=== PATIENT | female | born 1960 | race Caucasian/White ===

== ENCOUNTER 2017-01-06 19:35 | Emergency (ER) | payer MEDICAID ==
[~2017-01-06] VITALS: Ht 170.2 cm; Wt 71.7 kg
[2017-01-06 20:30] VITALS: BP 137/87
[2017-01-06] MEDS ORDERED: Azithromycin 250mg tab PO ONE (20:45)
[2017-01-06] MEDS ORDERED: Albuterol ud Inhalation HHN ONE (20:45)
[2017-01-06] MEDS ORDERED: DuoNeb 0.5-3(2.5)mg/3ml neb ONE (21:13)
[2017-01-06 21:19] LABS: BASOPHILS % (AUTO) 0.9 % (0.0-2.0); EOSINOPHILS % (AUTO) 0.7 % (0.0-3.0); LYMPHOCYTES % (AUTO) 39.8 % (20.0-45.0); MEAN CORPUSCULAR HEMOGLOBIN 32.1 PG (27.0-31.0); MEAN CORPUSCULAR HGB CONC 35.6 G/DL (32.0-36.0); MEAN CORPUSCULAR VOLUME 90 FL (80-99); MEAN PLATELET VOLUME 6.8 FL (6.5-10.1); MONOCYTES % (AUTO) 11.5 % (1.0-10.0); NEUTROPHILS % (AUTO) 47.1 % (45.0-75.0); PLATELET COUNT 167 K/UL (150-450); RED BLOOD COUNT 4.16 M/UL (4.20-5.40); RED CELL DISTRIBUTION WIDTH 11.5 % (11.6-14.8); WHITE BLOOD COUNT 6.6 K/UL (4.8-10.8)
[2017-01-06 21:35] LABS: ALANINE AMINOTRANSFERASE 24 U/L (3-33); ALBUMIN/GLOBULIN RATIO 1.3 (1.0-2.7); ANION GAP 12 (5-15); ASPARTATE AMINO TRANSFERASE 17 U/L (5-40); CALCIUM 9.1 mg/dL (8.6-10.2); CARBON DIOXIDE 24 mEQ/L (20-30); CHLORIDE 104 mEQ/L (98-107); CREATININE 0.9 mg/dL (0.5-0.9); GLOMERULAR FILTRATION RATE > 60 mL/min (>60); HEMOLYSIS 3; POTASSIUM 3.9 mEQ/L (3.4-4.9); SODIUM 140 mEQ/L (135-145); TOTAL PROTEIN 7.3 g/dL (6.6-8.7)
--- NOTE | 2017-01-06 22:03 | Emergency Room Report ---
History of Present Illness General Chief Complaint: Flu Like Symptoms Source: Patient Present Illness HPI This patient states that for the past week she is bodyaches, cough and has felt terrible. She denies sputum production. She states her cough is severe. She denies nausea or vomiting. She has subjective fever. She denies chest pain. She denies abdominal pain. She has no other complaints. Allergies: Coded Allergies: No Known Allergies (Unverified , 01/06/17) Patient History Past Medical History: see triage record, asthma Past Surgical History: none Social History: Denies: smoking, alcohol use, drug use Last Menstrual Period: NA Now: No Reviewed Nursing Documentation: PMH: Agreed, PSxH: Agreed Nursing Documentation-PMH Past Medical History: No Stated History Hx Asthma: Yes Review of Systems All Other Systems: negative except mentioned in HPI Physical Exam Vital Signs Date Time Temp Pulse Resp B/P (MAP) Pulse Ox O2 Delivery O2 Flow Rate FiO2 01/06/17 20:25 98.8 85 18 137/87 98 Room Air 01/06/17 21:40 21 Sp02 EP Interpretation: reviewed, normal General Appearance: no apparent distress, alert, GCS 15, non-toxic Head: normocephalic, atraumatic Eyes: bilateral eye normal inspection, bilateral eye PERRL ENT: hearing grossly normal, normal pharynx, no angioedema, normal voice Neck: full range of motion, supple/symm/no masses Respiratory: chest non-tender, no respiratory distress, no retraction, no accessory muscle use, speaking full sentences, wheezing - with forced expiration and cough Cardiovascular #1: regular rate, rhythm, no edema Gastrointestinal: normal bowel sounds, non tender, soft, non-distended, no guarding, no rebound Rectal: deferred Musculoskeletal: back normal, gait/station normal, normal range of motion, non- tender Neurologic: alert, oriented x3, responsive, motor strength/tone normal, sensory intact, speech normal Psychiatric: judgement/insight normal, memory normal, mood/affect normal, no suicidal/homicidal ideation Skin: normal color, no rash, warm/dry, well hydrated Medical Decision Making Diagnostic Impression: Primary Impression: URI (upper respiratory infection) Additional Impression: Bronchitis ER Course This patient has a clinical presentation with bronchitis and some expiratory wheezing. The evaluation was very reassuring with a normal lung exam, no respiratory distress, normal pulse oximetry. I am not concerned for pneumonia in this patient. The patient had symptoms ongoing for the past week. Given the history of asthma, I will go ahead and treat this patient with a course of antibiotics, steroids and albuterol. The patient was given close return precautions and followup instructions are No emergency medical condition was identified. Laboratory Tests Test 01/06/17 20:55 01/06/17 21:00 White Blood Count 6.6 K/UL (4.8-10.8) Red Blood Count 4.16 M/UL (4.20-5.40) L Hemoglobin 13.3 G/DL (12.0-16.0) Hematocrit 37.5 % (37.0-47.0) Mean Corpuscular Volume 90 FL (80-99) Mean Corpuscular Hemoglobin 32.1 PG (27.0-31.0) H Mean Corpuscular Hemoglobin Concent 35.6 G/DL (32.0-36.0) Red Cell Distribution Width 11.5 % (11.6-14.8) L Platelet Count 167 K/UL (150-450) Mean Platelet Volume 6.8 FL (6.5-10.1) Neutrophils (%) (Auto) 47.1 % (45.0-75.0) Lymphocytes (%) (Auto) 39.8 % (20.0-45.0) Monocytes (%) (Auto) 11.5 % (1.0-10.0) H Eosinophils (%) (Auto) 0.7 % (0.0-3.0) Basophils (%) (Auto) 0.9 % (0.0-2.0) Sodium Level 140 mEQ/L (135-145) Potassium Level 3.9 mEQ/L (3.4-4.9) Chloride Level 104 mEQ/L (98-107) Carbon Dioxide Level 24 mEQ/L (20-30) Anion Gap 12 (5-15) Blood Urea Nitrogen 14 mg/dL (7-23) Creatinine 0.9 mg/dL (0.5-0.9) Estimate Glomerular Filtration Rate > 60 mL/min (>60) Glucose Level 99 mg/dL (74-106) Lactic Acid Level 1.10 mmol/L (0.66-2.22) Calcium Level 9.1 mg/dL (8.6-10.2) Total Bilirubin 0.2 mg/dL (0.0-1.2) Aspartate Amino Transferase (AST) 17 U/L (5-40) Alanine Aminotransferase (ALT) 24 U/L (3-33) Alkaline Phosphatase 46 U/L (35-104) Total Protein 7.3 g/dL (6.6-8.7) Albumin 4.2 g/dL (3.5-5.2) Globulin 3.1 g/dL Albumin/Globulin Ratio 1.3 (1.0-2.7) Urine Color Pending Urine Appearance Pending Urine pH Pending Urine Specific [place] Pending Urine Protein Pending Urine Glucose (UA) Pending Urine Ketones Pending Urine Occult Blood Pending Urine Nitrite Pending Urine Bilirubin Pending Urine Urobilinogen Pending Urine Leukocyte Esterase Pending EKG Diagnostic Results Rate: normal Rhythm: NSR ST Segments: no acute changes Rhythm Strip Diag. Results EP Interpretation: yes Rate: 70's Rhythm: NSR, no PVC's, no ectopy Chest X-Ray Diagnostic Results Chest X-Ray Diagnostic Results : Chest X-Ray Ordered: Yes # of Views/Limited/Complete: 1 View Indication: Other - cough EP Interpretation: Yes Interpretation: no consolidation, no effusion, no pneumothorax, no acute cardiopulmonary disease Impression: No acute disease Electronically Signed by: Adama Last Vital Signs Date Time Temp Pulse Resp B/P (MAP) Pulse Ox O2 Delivery O2 Flow Rate FiO2 01/06/17 21:41 88 20 99 Room Air 21 01/06/17 20:25 98.8 137/87 Status: improved Disposition: HOME, SELF-CARE Condition: Improved SADE POMPA D.O. Jan 06, 2017 22:03
[2017-01-06 22:04] LABS: APPEARANCE,URINE CLEAR; KETONES,URINE NEGATIVE (NEGATIVE); LEUKOCYTE ESTERASE ,URINE 2+ (NEGATIVE); NITRITE,URINE NEGATIVE (NEGATIVE); PH,URINE 8 (4.5-8.0); PROTEIN,URINE NEGATIVE (NEGATIVE); UROBILINOGEN,URINE NORMAL MG/DL (0.0-1.0)
[2017-01-06] MEDS ORDERED: E-Z SPACER1 EACH MC (22:07)
[2017-01-06] MEDS ORDERED: ZITHROMAX250 MG ORAL (22:07)
[2017-01-06] MEDS ORDERED: PREDNISONE20 MG ORAL (22:07)
[2017-01-06] MEDS ORDERED: ALBUTEROL SULF8.5 GM INH (22:07)
[2017-01-06 22:24] LABS: BACTERIA,URINE FEW /HPF; RBC,URINE 0-2 /HPF (0 - 2); SQUAMOUS EPITHELIAL CELL,UR FEW /LPF (NONE/OCC)
[2017-01-06 22:30] VITALS: BP 130/79
--- NOTE | 2017-01-07 11:48 | Diagnostic Imaging Report ---
Indication: Dyspnea Comparison: None A single view chest radiograph was obtained. Findings: No definite infiltrate or pulmonary vascular congestion identified. The heart is enlarged. The aorta is mildly enlarged consistent with atherosclerotic vascular disease. The bones are osteopenic. Impression: No acute disease
--- NOTE | 2017-01-07 17:55 | Cardiology Report ---
APPROVED REPORT EKG Measurement Heart [id number] Normal sinus rhythm Normal ECG
== END 2017-01-06 22:30 | disposition home or self-care (01) ==
LOC: EMR 20:51
DX: J06.9 Acute upper respiratory infection, unspecified (principal); J45.909 Unspecified asthma, uncomplicated
CPT/HCPCS: 36415; 71010; 80053; 81003; 83605; 85025; 87040; 93005; 94640; 94664; 96360; 99284; Q0144; 96361; J7620

== ENCOUNTER 2017-08-03 17:23 | Emergency (ER) | payer MEDICAID ==
[~2017-08-03] VITALS: Ht 170.2 cm; Wt 71.2 kg
[~2017-08-03 17:23] MED LIST: ALBUTEROL SULF8.5 GM INH; E-Z SPACER1 EACH MC; PREDNISONE20 MG ORAL; ZITHROMAX250 MG ORAL
[2017-08-03 18:01] VITALS: BP 135/86
--- NOTE | 2017-08-03 18:19 | Emergency Room Report ---
History of Present Illness General Chief Complaint: Headache Present Illness HPI 57-year-old female presents to the emergency department complaining of productive cough, increased mucus, sore throat, generalized body aches and subjective fevers and chills 1 week. Patient reports 10 out of 10 in severity sore throat and body-aches. Patient reports her daughter with an ill contact with similar symptoms that did not resolve until she was prescribed antibiotics. Patient did not receive her flu vaccination this year. Patient denies history of COPD, asthma or smoking. Patient states that she had asthma one time several years ago but not anymore. Patient also reports 10 out of 10 in severity progressive onset headache frontally. Patient states she has a history of frequent headaches and that this is similar in character to previously experienced headaches. Patient states that she has headaches monthly. Denies trauma or fall. Denies ear pain, high fevers, lethargy, neck pain/stiffness, irritability, photophobia dehydration, N/V/D. Denies Cp, Palpitations, LOC, AMS, seizures, paresthesias, or changes in Hearing or vision , no Sudden severe JIMENEZ. Allergies: Coded Allergies: No Known Allergies (Unverified , 01/06/17) Patient History Past Medical History: see triage record Past Surgical History: none Pertinent Family History: none Now: No Reviewed Nursing Documentation: PMH: Agreed; PSxH: Agreed Nursing Documentation-PMH Hx Asthma: Yes Review of Systems All Other Systems: negative except mentioned in HPI Physical Exam Vital Signs Date Time Temp Pulse Resp B/P (MAP) Pulse Ox O2 Delivery O2 Flow Rate FiO2 08/03/17 17:34 98.6 105 18 135/86 95 Room Air 98.6 Sp02 EP Interpretation: reviewed, normal General Appearance: no apparent distress, alert, GCS 15, non-toxic Head: normocephalic, atraumatic ENT: hearing grossly normal, normal voice, TMs + canals normal, uvula midline, moist mucus membranes, nasal congestion, pharyngeal erythema - no exudates Neck: full range of motion, no meningismus, no bony tend Respiratory: lungs clear, normal breath sounds, no respiratory distress, no accessory muscle use, no wheezing, speaking full sentences, other - mild chest ttp. Cardiovascular #1: regular rate, rhythm, normal capillary refill Gastrointestinal: non tender, soft Musculoskeletal: back normal, gait/station normal, normal range of motion, non- tender Neurologic: alert, oriented x3, responsive, motor strength/tone normal, sensory intact, cerebellar normal, normal gait, speech normal, other - no facial droop., grossly normal Psychiatric: judgement/insight normal Skin: normal color, no rash, warm/dry, well hydrated Lymphatic: no adenopathy Medical Decision Making PA Attestation Dr. Caceres is my supervising Physician whom patient management has been discussed with. Diagnostic Impression: Primary Impression: Atypical pneumonia Additional Impression: Hx of headache ER Course 57-year-old female presents to the emergency department complaining of productive cough, increased mucus, sore throat, generalized body aches and subjective fevers and chills 1 week. Patient reports 10 out of 10 in severity sore throat and body-aches. Patient reports her daughter with an ill contact with similar symptoms that did not resolve until she was prescribed antibiotics. Patient did not receive her flu vaccination this year. Patient denies history of COPD, asthma or smoking. Patient states that she had asthma one time several years ago but not anymore. Patient also reports 10 out of 10 in severity progressive onset headache frontally. Patient states she has a history of frequent headaches and that this is similar in character to previously experienced headaches. Patient states that she has headaches monthly. Denies trauma or fall. Denies ear pain, high fevers, lethargy, neck pain/stiffness, irritability, photophobia dehydration, N/V/D. Denies Cp, Palpitations, LOC, AMS, seizures, paresthesias, or changes in Hearing or vision , no Sudden severe JIMENEZ. Ddx considered but are not limited to URI, pneumonia, PE, strep pharyngitis, meningitis. Vital signs: Pt. is afebrile, the remaining VS are WNL H&PE are most consistent with URI, due to hx of productive cough and fevers and pt. being mildly tachycardic in ED will treat for Atypical PNA. no evidence to suggest strep throat. . ORDERS: none required at this time, the diagnosis is clinical ED INTERVENTIONS: -Tylenol PO d/w pt. conservative treatment, and to follow up with a primary care provider. pt given a list of primary care clinics for follow up. d/w pt. to return to the ED with worsening or new symptoms. DISCHARGE: At this time pt. is stable for d/c to home. Will provide printed patient care instructions, and any necessary prescriptions. Care plan and follow up instructions have been discussed with the patient prior to discharge. Last Vital Signs Date Time Temp Pulse Resp B/P (MAP) Pulse Ox O2 Delivery O2 Flow Rate FiO2 08/03/17 18:12 98.6 08/03/17 18:01 105 18 135/86 95 Room Air Disposition: HOME, SELF-CARE Condition: Stable Scripts Naproxen* (NAPROXEN*) 375 Mg Tablet.dr 375 MG ORAL TWICE A DAY, #20 TAB Prov: Dolly Bravo 08/03/17 Codeine/Promethazine Hcl* (PROMETHAZINE-CODEINE SYRUP*) 118 Ml Syrup 5 ML ORAL Q6H PRN for For Cough, #120 ML 0 Refills Prov: Dolly Bravo 08/03/17 Azithromycin* (ZITHROMAX*) 250 Mg Tablet 250 MG ORAL DAILY, #6 TAB 0 Refills Take two tables once daily for 1 day, then one tablet once daily for 4 days. Prov: Dolly Bravo 08/03/17 Patient Instructions: Acute Bronchitis, [id number] Additional Instructions: Take medications as directed. Follow up with a Primary Care Provider in 3-5 days, even if your symptoms have resolved. --Please review list of primary care clinics, if you do not already have a primary care provider Return sooner to ED if new symptoms occur, or current symptoms become worse. Do not drink alcohol, drive, or operate heavy machinery while taking Cough Syrup as this may cause drowsiness. - Please note that this Emergency Department Report was dictated using [email or web address] lithographic technology software, occasionally this can lead to erroneous entry secondary to interpretation by the dictation equipment. Dolly Bravo Aug 03, 2017 18:19
[2017-08-03] MEDS ORDERED: NAPROXEN375 M2 ORAL (18:21)
[2017-08-03] MEDS ORDERED: ZITHROMAX250 MG ORAL (18:21)
[2017-08-03] MEDS ORDERED: PROMETHAZINE-C118 M1 ORAL (18:21)
[2017-08-03 18:30] VITALS: BP 132/83
== END 2017-08-03 18:30 | disposition home or self-care (01) ==
LOC: EMR 18:00
DX: J18.9 Pneumonia, unspecified organism (principal); R51 Headache
CPT/HCPCS: 99284

== ENCOUNTER 2017-10-26 12:41 | Emergency (ER) | payer MEDICAID ==
[~2017-10-26] VITALS: Ht 162.6 cm; Wt 74.8 kg
[~2017-10-26 12:41] MED LIST changes: +NAPROXEN375 M2 ORAL; +PROMETHAZINE-C118 M1 ORAL
[2017-10-26] MEDS ORDERED: NKM (12:45)
[2017-10-26] MEDS ORDERED: Ketorolac 30mg Inj IV ONE (13:00)
[2017-10-26] MEDS ORDERED: Morphine Sulfate 2mg/ml Inj IVP ONE (13:00)
--- NOTE | 2017-10-26 13:12 | Emergency Room Report ---
History of Present Illness General Chief Complaint: Pain Source: Patient, Medical Record Present Illness HPI The patient presents with low back pain. It's on the left-hand side. It's worse in the last 3 days. Radiates down her left leg slightly. She's been taking ibuprofen without any help. She denies any fevers. She rates the pain 9 /10 is sharp and aching. It's worse when she tries to move about. She denies having any previous x-rays or work up. She denies any saddle numbness, incontinence, fevers, chills, blood thinners or oncologic problems. No trauma. The patient is also complaining about chest pain. She states the pain is so severe that it causes more pain in her chest. This is associated with dyspnea. Denies any hypertension. She denies diabetes or smoking. No dysuria, change in bowels, rashes, headache. The pain causes anxiety. She is undergoing physical therapy for her neck. This is different from the back pain and has been improving. Allergies: Coded Allergies: No Known Allergies (Unverified , 01/06/17) Patient History Past Medical History: see triage record Social History: Denies: smoking Social History Narrative with daughter Last Menstrual Period: menopause Reviewed Nursing Documentation: PMH: Agreed; PSxH: Agreed Nursing Documentation-PMH Past Medical History: No History, Except For Hx Asthma: Yes Review of Systems All Other Systems: negative except mentioned in HPI Physical Exam Vital Signs Date Time Temp Pulse Resp B/P (MAP) Pulse Ox O2 Delivery O2 Flow Rate FiO2 10/26/17 12:41 97.9 76 18 123/79 96 Room Air 97.9 Sp02 EP Interpretation: reviewed, normal General Appearance: well appearing, GCS 15, other - anxious with pain Head: normocephalic, atraumatic Eyes: bilateral eye normal inspection, bilateral eye PERRL, bilateral eye EOMI ENT: moist mucus membranes Neck: full range of motion, supple, no bony tend Respiratory: lungs clear, normal breath sounds Cardiovascular #1: regular rate, rhythm Cardiovascular #2: 2+ radial (R) Gastrointestinal: normal inspection, normal bowel sounds, non tender, no mass, non-distended Genitourinary: no CVA tenderness Musculoskeletal: gait/station normal, normal range of motion, other - lumbar tenderness, more on L with paraspinous tenderness and some spasm. SLR neg for pain radiating to legs Neurologic: alert, oriented x3, motor strength/tone normal, DTRs symmetric, sensory intact, cerebellar normal, normal gait, speech normal, no Babinski Psychiatric: anxious Reflexes: 2+ knee (R), 2+ knee (L), 2+ ankle (R), 2+ ankle (L) Skin: normal inspection, warm/dry Medical Decision Making Diagnostic Impression: Primary Impression: Back pain Qualified Codes: M54.5 - Low back pain Additional Impression: Osteoarthritis Qualified Codes: M47.817 - Spondylosis without myelopathy or radiculopathy, lumbosacral region ER Course Patient presents with left flank pain and back pain radiating down her left leg. Differential includes pyelonephritis, UTI, back strain, sciatica, degenerative disc disease, muscle spasm amongst others. She also is having some chest pressure and this needs to be evaluated. She'll be evaluated with EKG, lumbar films, labs including urinalysis. The patient will be treated with Toradol, morphine and Zofran. Labs with normal CBC, CMP, sed rate, coags and UA. EKG no injury - NSR - normal. Lumbar films with DJD L5S1 - loss of disk height, no spondylolisthesis. Improved with treatment. With border patrol officer, discussed findings and treatment plan with need for physical therapy. During this discussion, she might have had a prior evaluation of her spine (though this was denied initially). Patient stable for outpatient observation and treatment. Laboratory Tests Test 10/26/17 13:10 10/26/17 13:15 Urine Color Pale yellow Urine Appearance Clear Urine pH 7 (4.5-8.0) Urine Specific [place] 1.005 (1.005-1.035) Urine Protein Negative (NEGATIVE) Urine Glucose (UA) Negative (NEGATIVE) Urine Ketones Negative (NEGATIVE) Urine Occult Blood Negative (NEGATIVE) Urine Nitrite Negative (NEGATIVE) Urine Bilirubin Negative (NEGATIVE) Urine Urobilinogen Normal MG/DL (0.0-1.0) Urine Leukocyte Esterase 2+ (NEGATIVE) H Urine RBC 0-2 /HPF (0 - 2) Urine WBC 2-4 /HPF (0 - 2) Urine Squamous Epithelial Cells Few /LPF (NONE/OCC) Urine Bacteria Occasional /HPF (NONE) White Blood Count 6.4 K/UL (4.8-10.8) Red Blood Count 4.83 M/UL (4.20-5.40) Hemoglobin 14.3 G/DL (12.0-16.0) Hematocrit 41.9 % (37.0-47.0) Mean Corpuscular Volume 87 FL (80-99) Mean Corpuscular Hemoglobin 29.6 PG (27.0-31.0) Mean Corpuscular Hemoglobin Concent 34.1 G/DL (32.0-36.0) Red Cell Distribution Width 10.9 % (11.6-14.8) L Platelet Count 200 K/UL (150-450) Mean Platelet Volume 7.6 FL (6.5-10.1) Neutrophils (%) (Auto) 54.2 % (45.0-75.0) Lymphocytes (%) (Auto) 36.6 % (20.0-45.0) Monocytes (%) (Auto) 7.5 % (1.0-10.0) Eosinophils (%) (Auto) 0.5 % (0.0-3.0) Basophils (%) (Auto) 1.2 % (0.0-2.0) Erythrocyte Sedimentation Rate 13 MM/HR (0-30) Prothrombin Time 10.6 SEC (9.30-11.50) Prothrombin Time INR 1.0 (0.9-1.1) PTT 28 SEC (23-33) Sodium Level 138 MMOL/L (136-145) Potassium Level 3.9 MMOL/L (3.5-5.1) Chloride Level 105 MMOL/L (98-107) Carbon Dioxide Level 24 MMOL/L (21-32) Anion Gap 9 mmol/L (5-15) Blood Urea Nitrogen 10 mg/dL (7-18) Creatinine 0.8 MG/DL (0.55-1.30) Estimate Glomerular Filtration Rate > 60 mL/min (>60) Glucose Level 97 MG/DL (74-106) Calcium Level 8.8 MG/DL (8.5-10.1) Total Bilirubin 0.4 MG/DL (0.2-1.0) Aspartate Amino Transferase (AST) 21 U/L (15-37) Alanine Aminotransferase (ALT) 45 U/L (12-78) Alkaline Phosphatase 52 U/L (46-116) Total Creatine Kinase 63 U/L (26-308) Troponin I 0.000 ng/mL (0.000-0.056) Pro-B-Type Natriuretic Peptide 116 pg/mL (0-125) Total Protein 7.5 G/DL (6.4-8.2) Albumin 3.7 G/DL (3.4-5.0) Globulin 3.8 g/dL Albumin/Globulin Ratio 1.0 (1.0-2.7) EKG Diagnostic Results Rate: normal Rhythm: NSR ST Segments: no acute changes Rhythm Strip Diag. Results EP Interpretation: yes Rhythm: NSR, no PVC's, no ectopy Chest X-Ray Diagnostic Results Chest X-Ray Diagnostic Results : Chest X-Ray Ordered: Yes # of Views/Limited/Complete: 1 View Indication: Chest Pain Interpretation: no consolidation, no effusion, no pneumothorax Impression: No acute disease Electronically Signed by: Carl Cisse MD Other X-Ray Diagnostic Results Other X-Ray Diagnostic Results : X-Ray ordered: LS spine # of Views/Limited Vs Complete: 4 View Indication: Pain Interpretation: no dislocation, no soft tissue swelling, no fractures, other - DJD L5S1 Impression: Other Electronically Signed by: Carl Cisse MD Last Vital Signs Date Time Temp Pulse Resp B/P (MAP) Pulse Ox O2 Delivery O2 Flow Rate FiO2 10/26/17 16:00 98.5 62 12 117/80 99 Room Air 98.4 Status: improved Disposition: HOME, SELF-CARE Condition: Improved Scripts Tramadol Hcl* (ULTRAM*) 50 Mg Tablet 50 MG ORAL Q6H PRN for For Pain, #10 TAB 0 Refills Prov: Carl Cisse M.D. 10/26/17 Ibuprofen* (MOTRIN*) 600 Mg Tablet 600 MG ORAL Q6H PRN for For Pain, #20 TAB Prov: Carl Cisse M.D. 10/26/17 Referrals: [facility],REFERRING (PCP) Carl Cisse M.D. Oct 26, 2017 13:12
[2017-10-26 13:28] VITALS: BP 112/93
[2017-10-26 13:36] LABS: BASOPHILS % (AUTO) 1.2 % (0.0-2.0); EOSINOPHILS % (AUTO) 0.5 % (0.0-3.0); HEMATOCRIT 41.9 % (37.0-47.0); HEMOGLOBIN 14.3 G/DL (12.0-16.0); LYMPHOCYTES % (AUTO) 36.6 % (20.0-45.0); MEAN CORPUSCULAR VOLUME 87 FL (80-99); MONOCYTES % (AUTO) 7.5 % (1.0-10.0); NEUTROPHILS % (AUTO) 54.2 % (45.0-75.0); PLATELET COUNT 200 K/UL (150-450); RED BLOOD COUNT 4.83 M/UL (4.20-5.40); RED CELL DISTRIBUTION WIDTH 10.9 % (11.6-14.8); WHITE BLOOD COUNT 6.4 K/UL (4.8-10.8)
[2017-10-26 13:36] LABS: APPEARANCE,URINE CLEAR; BILIRUBIN, URINE NEGATIVE (NEGATIVE); COLOR,URINE PALE YELLOW; GLUCOSE, URINE (UA) NEGATIVE (NEGATIVE); KETONES,URINE NEGATIVE (NEGATIVE); LEUKOCYTE ESTERASE ,URINE 2+ (NEGATIVE); NITRITE,URINE NEGATIVE (NEGATIVE); PH,URINE 7 (4.5-8.0); PROTEIN,URINE NEGATIVE (NEGATIVE); UROBILINOGEN,URINE NORMAL MG/DL (0.0-1.0)
[2017-10-26 14:07] LABS: ANION GAP 9 mmol/L (5-15); BLOOD UREA NITROGEN 10 mg/dL (7-18); CALCIUM 8.8 MG/DL (8.5-10.1); CARBON DIOXIDE 24 MMOL/L (21-32); CHLORIDE 105 MMOL/L (98-107); CREATININE 0.8 MG/DL (0.55-1.30); POTASSIUM 3.9 MMOL/L (3.5-5.1); SODIUM 138 MMOL/L (136-145)
[2017-10-26 14:18] LABS: ALANINE AMINOTRANSFERASE 45 U/L (12-78); ALBUMIN 3.7 G/DL (3.4-5.0); ALKALINE PHOSPHATASE 52 U/L (46-116); ASPARTATE AMINO TRANSFERASE 21 U/L (15-37); BILIRUBIN,TOTAL 0.4 MG/DL (0.2-1.0); CREATINE KINASE 63 U/L (26-308)
[2017-10-26] MEDS ORDERED: IBUPROFEN600 MG ORAL (15:49)
[2017-10-26] MEDS ORDERED: TRAMADOL HCL50 MG ORAL (15:49)
[2017-10-26 16:00] VITALS: BP 117/80
--- NOTE | 2017-10-26 17:39 | Cardiology Report ---
APPROVED REPORT EKG Measurement Heart [id number] Normal sinus rhythm Normal ECG
--- NOTE | 2017-10-27 11:51 | Diagnostic Imaging Report ---
Indication: Back pain Comparison: None Findings: 3 views of the lumbar spine were obtained. No definite acute fracture identified. The bones are osteopenic. There is sclerosis and narrowing of the facets. There is narrowing of the L5-S1 disc. Visualization and technical parameters are suboptimal. IMPRESSION: No acute injury appreciated. Limited study
--- NOTE | 2017-10-27 11:52 | Diagnostic Imaging Report ---
Indication: Chest pain Comparison: 01/06/2017 A single view chest radiograph was obtained. Findings: Cardiomediastinal appearance is within normal limits for age. Pulmonary vascularity is appropriate. The diaphragmatic contour is smooth and costophrenic angles are sharp. No pleural effusions are identified. The bones are unremarkable. Impression: No acute findings
== END 2017-10-26 16:00 | disposition home or self-care (01) ==
LOC: EMR 13:00
DX: M54.5 Low back pain (principal); M47.817 Spondylosis without myelopathy or radiculopathy, lumbosacral region; J45.909 Unspecified asthma, uncomplicated
CPT/HCPCS: 36415; 71045; 72020; 80053; 81003; 82550; 83880; 84484; 85025; 85610; 85651; 85730; 93005; 96365; 96375; 99283; J1885; J2270; J2405

== ENCOUNTER 2020-06-24 13:25 | Emergency (ER) | payer MEDICAID ==
[~2020-06-24] VITALS: Ht 162.6 cm; Wt 65.8 kg
[~2020-06-24 13:25] MED LIST changes: +IBUPROFEN600 MG ORAL; +NKM; +TRAMADOL HCL50 MG ORAL
--- NOTE | 2020-06-24 15:41 | Emergency Room Report ---
History of Present Illness General Chief Complaint: Abdominal Pain Source: Patient Present Illness HPI Disclaimer: Please note that this report is being documented using [employer] technology. This can lead to erroneous entry secondary to incorrect interpretation by the dictating instrument. HPI: 60-year-old female presents with back pain and dysuria. Symptoms present 2 weeks. She reports aching in both flanks that is slowly moved down to the lower back and into the lower pelvis. Reports dysuria but no hematuria. Reports urinary urgency and hesitancy. Denies nausea, vomiting, diarrhea. Denies fever or chills. Denies injury or fall. No prior history of kidney stone, she states she has been checked many times. PMH: Reviewed PSH: Reviewed Allergies: Reviewed Social Hx: Reviewed Allergies: Coded Allergies: No Known Allergies (Unverified , 01/06/17) COVID-19 Screening Contact w/high risk pt: No Experienced COVID-19 symptoms?: No COVID-19 Testing performed [employer]: No Nursing Documentation-PMH Hx Asthma: Yes Review of Systems All Other Systems: negative except mentioned in HPI Physical Exam Vital Signs Date Time Temp Pulse Resp B/P (MAP) Pulse Ox O2 Delivery O2 Flow Rate FiO2 06/24/20 15:29 98.4 82 18 130/80 (97) 98 Room Air General: Awake and alert, no acute distress HEENT: NC/AT. EOMI. Cardiovascular: RRR. S1 and S2 normal. No murmur appreciated Resp: Normal work of breathing. No cough, wheezing or crackles appreciated Abdomen: Abdomen is soft, nondistended. Obese abdomen. Nontender Skin: Intact. No abrasions, laceration or rash over the exposed skin MSK: Normal tone and bulk. Moving all extremities. No obvious deformity. Neuro: Awake and alert. Mentating appropriately. Back: Bilateral CVA tenderness. No bruising. Medical Decision Making Diagnostic Impression: Primary Impression: UTI (urinary tract infection) Additional Impression: Pyelonephritis ER Course Is a 60-year-old female presenting for evaluation of urinary symptoms and flank pain. Differential includes but is not limited to UTI, pyelonephritis, nephrolithiasis, gastritis, gastroenteritis, pancreatitis, cholecystitis, hepatitis among others. Labs are largely within normal limits though urine concerning for acute urinary tract infection and coupled with the patient's bilateral flank pain consistent with a pyelonephritis. She is afebrile and other labs are within normal limits including renal function. Patient treated deceived IV antibiotics here will be discharged with continued oral antibiotics. Will follow up with her PMD. Instructed to return new or worsening symptoms. Laboratory Tests Test 06/24/20 15:35 White Blood Count 6.4 K/UL (4.8-10.8) Red Blood Count 4.70 M/UL (4.20-5.40) Hemoglobin 14.5 G/DL (12.0-16.0) Hematocrit 42.0 % (37.0-47.0) Mean Corpuscular Volume 89 FL (80-99) Mean Corpuscular Hemoglobin 30.9 PG (27.0-31.0) Mean Corpuscular Hemoglobin Concent 34.6 G/DL (32.0-36.0) Red Cell Distribution Width 12.5 % (11.6-14.8) Platelet Count 217 K/UL (150-450) Mean Platelet Volume 7.8 FL (6.5-10.1) Neutrophils (%) (Auto) 52.5 % (45.0-75.0) Lymphocytes (%) (Auto) 37.8 % (20.0-45.0) Monocytes (%) (Auto) 8.1 % (1.0-10.0) Eosinophils (%) (Auto) 0.6 % (0.0-3.0) Basophils (%) (Auto) 1.1 % (0.0-2.0) Urine Color Yellow Urine Appearance Slightly cloudy Urine pH 6 (4.5-8.0) Urine Specific [place] 1.015 (1.005-1.035) Urine Protein Negative (NEGATIVE) Urine Glucose (UA) Negative (NEGATIVE) Urine Ketones Negative (NEGATIVE) Urine Blood Negative (NEGATIVE) Urine Nitrite Negative (NEGATIVE) Urine Bilirubin Negative (NEGATIVE) Urine Urobilinogen Normal MG/DL (0.0-1.0) Urine Leukocyte Esterase 3+ (NEGATIVE) H Urine RBC 0-2 /HPF (0 - 2) Urine WBC 15-20 /HPF (0 - 2) H Urine Squamous Epithelial Cells Many /LPF (NONE/OCC) H Urine Bacteria Moderate /HPF (NONE) H Sodium Level 141 MMOL/L (136-145) Potassium Level 3.9 MMOL/L (3.5-5.1) Chloride Level 104 MMOL/L (98-107) Carbon Dioxide Level 27 MMOL/L (21-32) Anion Gap 10 mmol/L (5-15) Blood Urea Nitrogen 14 mg/dL (7-18) Creatinine 0.7 MG/DL (0.55-1.30) Estimated Glomerular Filtration Rate > 60 mL/min (>60) Glucose Level 104 MG/DL (74-106) Calcium Level 9.2 MG/DL (8.5-10.1) Lipase 165 U/L (73-393) Last Vital Signs Date Time Temp Pulse Resp B/P (MAP) Pulse Ox O2 Delivery O2 Flow Rate FiO2 06/24/20 15:29 98.4 82 18 130/80 (97) 98 Room Air Disposition: HOME, SELF-CARE Condition: Stable Scripts Ciprofloxacin Hcl* (CIPROFLOXACIN HCL*) 500 Mg Tablet 500 MG ORAL EVERY 12 HOURS for 7 Days, #14 TAB 0 Refills Prov: Kalia Muir MD 06/24/20 Kalia Muir MD Jun 24, 2020 15:41
--- NOTE | 2020-06-24 15:46 | NUR ---
pt arrives with family members with complaints of consistent abdominal pain radiating to lower back .
[2020-06-24 16:11] LABS: BASOPHILS % (AUTO) 1.1 % (0.0-2.0); BILIRUBIN, URINE NEGATIVE (NEGATIVE); EOSINOPHILS % (AUTO) 0.6 % (0.0-3.0); GLUCOSE, URINE (UA) NEGATIVE (NEGATIVE); HEMOGLOBIN 14.5 G/DL (12.0-16.0); KETONES,URINE NEGATIVE (NEGATIVE); LEUKOCYTE ESTERASE ,URINE 3+ (NEGATIVE); LYMPHOCYTES % (AUTO) 37.8 % (20.0-45.0); MEAN CORPUSCULAR VOLUME 89 FL (80-99); MONOCYTES % (AUTO) 8.1 % (1.0-10.0); NEUTROPHILS % (AUTO) 52.5 % (45.0-75.0); NITRITE,URINE NEGATIVE (NEGATIVE); PH,URINE 6 (4.5-8.0); PLATELET COUNT 217 K/UL (150-450); PROTEIN,URINE NEGATIVE (NEGATIVE); RED CELL DISTRIBUTION WIDTH 12.5 % (11.6-14.8); UROBILINOGEN,URINE NORMAL MG/DL (0.0-1.0); WHITE BLOOD COUNT 6.4 K/UL (4.8-10.8)
[2020-06-24 16:14] LABS: APPEARANCE,URINE SLIGHTLY CLOUDY; COLOR,URINE YELLOW
[2020-06-24] MEDS ORDERED: cefTRIAXone 1 GM in NS 55 ML IVPB ONE (16:30)
[2020-06-24] MEDS ORDERED: CIPROFLOXACIN500 M2 ORAL (16:44)
[2020-06-24 16:46] LABS: ANION GAP 10 mmol/L (5-15); BLOOD UREA NITROGEN 14 mg/dL (7-18); CALCIUM 9.2 MG/DL (8.5-10.1); CARBON DIOXIDE 27 MMOL/L (21-32); CHLORIDE 104 MMOL/L (98-107); CREATININE 0.7 MG/DL (0.55-1.30); POTASSIUM 3.9 MMOL/L (3.5-5.1); SODIUM 141 MMOL/L (136-145)
[2020-06-24 17:16] VITALS: BP 121/80
== END 2020-06-24 17:24 | disposition home or self-care (01) ==
LOC: EMR 15:40
DX: N39.0 Urinary tract infection, site not specified (principal); N12 Tubulo-interstitial nephritis, not specified as acute or chronic; J45.909 Unspecified asthma, uncomplicated
CPT/HCPCS: 36415; 80048; 81003; 83690; 85025; 87086; 96365; J0696; Z7502; 99284